=== PATIENT | male | born 1970 | race American Indian/Alaskan Native ===

== ENCOUNTER 2017-01-16 07:51 | Emergency (ER) | payer SELFPAY ==
--- NOTE | 2017-01-16 10:23 | Emergency Department Report ---
ED Back Pain/Injury HPI - General Chief Complaint: Back Pain/Injury Stated Complaint: BACK SPASM Time Seen by Provider: 01/16/17 10:22 Source: patient Limitations: Physical Limitation - History of Present Illness Initial Comments: Patient states that he has recently worked out at a gym. He was at a libertarian with a friend and felt a "muscle spasm" in the right upper lumbar area. Patient states "I know it's the muscle and not the bone". He denies any radiating pain, pleuritic pain chest pain nausea vomiting numbness paresthesias or weakness. He is able to have normal micturition and bowel movements. He states that he occasionally gets back problems but this was somewhat worse. He doesn't have any chronic diagnosis. He denies a history of hypertension. He states he works at at a [employer] and does take his blood pressure. Complaint: back pain -: Gradual, hour(s) Similar Symptoms Previously: Yes (but states this is worse) Place: home Radiation: none Severity: moderate Quality: other ("like a muscle spasm") Consistency: constant Improves With: none Worsens With: movement Context: while lifting (after working out at a gym yesterday) Associated Symptoms: denies other symptoms - Related Data Previous Rx's Medication Instructions Recorded Last Taken Type Cyclobenzaprine [Flexeril] 10 mg PO TID PRN #10 tablet 01/16/17 Unknown Rx HYDROcodone/APAP 7.5-325 [[place] 1 each PO Q6HR PRN #14 tablet 01/16/17 Unknown Rx 7.5/325] Allergies Allergy/AdvReac Type Severity Reaction Status Date / Time No Known Allergies Allergy Unverified 01/16/17 08:20 ED Review of Systems ROS: Stated complaint: BACK SPASM Other details as noted in HPI Constitutional: denies: chills, fever Eyes: denies: eye pain, eye discharge, vision change ENT: denies: ear pain, throat pain Respiratory: denies: cough, shortness of breath, wheezing Cardiovascular: denies: chest pain, palpitations Endocrine: no symptoms reported Gastrointestinal: denies: abdominal pain, nausea, diarrhea Genitourinary: denies: urgency, dysuria Musculoskeletal: as per HPI, back pain. denies: joint swelling, arthralgia Skin: denies: rash, lesions Neurological: denies: headache, weakness, paresthesias Psychiatric: denies: anxiety, depression Hematological/Lymphatic: denies: easy bleeding, easy bruising ED Past Medical Hx - Past Medical History Hx Hypertension: No Hx CVA: No Hx Heart Attack/AMI: No Hx Congestive Heart Failure: No Hx GERD: No Hx of Cancer: No Hx Arthritis: No Hx Headaches / Migraines: No Hx Asthma: No Hx COPD: No - Surgical History Past Surgical History?: No - Social History Smoking Status: Current Some Day Smoker Substance Use Type: Alcohol - Medications Home Medications: Home Medications Medication Instructions Recorded Confirmed Last Taken Type Cyclobenzaprine [Flexeril] 10 mg PO TID PRN #10 tablet 01/16/17 Unknown Rx HYDROcodone/APAP 7.5-325 [[place] 1 each PO Q6HR PRN #14 tablet 01/16/17 Unknown Rx 7.5/325] ED Physical Exam - General Limitations: No Limitations General appearance: alert, in no apparent distress - Head Head exam: Present: atraumatic, normocephalic - Eye Eye exam: Present: normal appearance, PERRL, EOMI. Absent: scleral icterus - ENT ENT exam: Present: mucous membranes moist - Neck Neck exam: Present: normal inspection. Absent: tenderness - Respiratory Respiratory exam: Present: normal lung sounds bilaterally. Absent: respiratory distress - Cardiovascular Cardiovascular Exam: Present: regular rate, normal rhythm. Absent: systolic murmur, diastolic murmur, rubs, gallop - GI/Abdominal GI/Abdominal exam: Present: soft, normal bowel sounds. Absent: distended, tenderness, guarding, rebound, rigid - Rectal Rectal exam: Present: deferred - Extremities Exam Extremities exam: Present: normal inspection - Back Exam Back exam: Present: normal inspection, muscle spasm (some paravertebral muscle spasm right upper lumbar), other (straight leg raise is negative bilaterally). Absent: CVA tenderness (R), CVA tenderness (L), paraspinal tenderness, vertebral tenderness - Neurological Exam Neurological exam: Present: alert, oriented X3, CN II-XII intact. Absent: motor sensory deficit - Psychiatric Psychiatric exam: Present: normal affect, normal mood - Skin Skin exam: Present: warm, dry, intact, normal color. Absent: rash ED Course Vital Signs 01/16/17 07:52 Pulse Rate 61 Respiratory 18 Rate Blood Pressure 150/104 O2 Sat by Pulse 98 Oximetry - Reevaluation(s) Reevaluation #1: The patient was treated with analgesia. He is referred to orthopedics for follow-up. I do not see any indications for imaging at this time. Neither does the patient who continually states, it's a muscle spasm". 01/16/17 10:45 Critical care attestation.: If time is entered above; I have spent that time in minutes in the direct care of this critically ill patient, excluding procedure time. ED Disposition Clinical Impression: Lumbar strain Qualifiers: Encounter type: initial encounter Qualified Code(s): S39.012A - Strain of muscle, fascia and tendon of lower back, initial encounter Disposition: TO HOME OR SELFCARE Is pt being admited?: No Does the pt Need Aspirin: No Condition: Stable Instructions: Muscle Strain (ED) Additional Instructions: Orthopedic follow-up is recommended should her symptoms persist. Return any acute change or problems. Prescriptions: Cyclobenzaprine [Flexeril] 10 mg PO TID PRN #10 tablet PRN Reason: Muscle Spasm HYDROcodone/APAP 7.5-325 [[place] 7.5/325] 1 each PO Q6HR PRN #14 tablet PRN Reason: Pain Referrals: PRIMARY CARE, [Primary Care Provider] - 3-5 Days Time of Disposition: 10:47
[2017-01-16] MEDS ORDERED: TORADOL IM ONE (10:48)
[2017-01-16] MEDS ORDERED: MORPHINE IM ONE (10:48)
[2017-01-16 11:30] VITALS: BP 154/98
== END 2017-01-16 11:28 | disposition home or self-care (01) ==
LOC: ED 07:51
DX: S39.012A Strain of muscle, fascia and tendon of lower back, initial encounter (principal); F17.200 Nicotine dependence, unspecified, uncomplicated; X50.0XXA Overexertion from strenuous movement or load, initial encounter; Y93.89 Activity, other specified; Y92.89 Other specified places as the place of occurrence of the external cause; Y99.8 Other external cause status
CPT/HCPCS: 96372; 99283; J1885; J2270